=== PATIENT | female | born 1990 | race Caucasian/White ===

== ENCOUNTER → 2018-12-05 09:48 | Outpatient (CLI) | payer OTHER, SELFPAY ==
--- NOTE | 2018-12-05 09:52 | US_ITS ---
US breast RT complete INDICATION: Right breast lump. ORDERING PHYSICIAN: Rosa Barboza PATIENT AGE: 27 years COMPARISON: None TECHNIQUE: Complete right breast ultrasound with axilla FINDINGS: There is scattered echodense fibroglandular tissue. In the inferior periareolar region there is a 5 mm complex nodule within the subcutaneous tissues. This does not represent a simple cyst and could represent a furuncle. Please correlate with physical exam. No other significant anomalies are evident. Small nodes are present in the axilla. IMPRESSION: Complex subcutaneous nodule in the periareolar region inferiorly ostially due to a furuncle. Correlation with clinical parameters are needed. Does not represent a simple cyst by ultrasound. A solid lesion cannot be excluded BI-RADS Category: 3 Probably Benign Finding Short Term Follow-up Recommendations: Correlation with physical exam (A letter has been sent to the patient regarding results of the study.)
== END ==
PROVIDERS: PCP Nurse Practitioner Family; Visit Provider Nurse Practitioner Family
DX: N63.10 Unspecified lump in the right breast, unspecified quadrant (principal)
CPT/HCPCS: 76641

== ENCOUNTER 2020-10-24 15:01 | Emergency (ER) | payer OTHER, SELFPAY ==
[2020-10-24 15:10] VITALS: BP 99/75; PULSE 74; RESP 14; TEMP 36.2; O2SAT 98; BMI 25.3
--- NOTE | 2020-10-24 15:28 | HMH.EDUTC ---
[facility] [place] Disposition Clinical Impression: Left leg pain Contusion of left lower leg Qualifiers: Encounter type: initial encounter Qualified Code(s): S80.12XA - Contusion of left lower leg, initial encounter Disposition: Home, Self-Care Condition on Discharge: Good Instructions: Contusion, DI for Leg Pain Additional Instructions: Rest the extremity, Elevate the extremity as tolerated while you are resting. Take ibuprofen for pain. I sent in a prescription to your pharmacy. Follow up with Dr. Correa (orthopedics). I put in a referral but you need to call her office and schedule an appointment if you continue to have symptoms. Follow up with your regular doctor. GO TO THE ER FOR ANY WORSENING SYMPTOMS Prescriptions: Ibuprofen [Ibuprofen 600mg Tablet] 600 mg PO Q6HP PRN #30 tab PRN Reason: Mild Pain Transmission Status: Received by [id number] Referrals: Renu Hamilton [Primary Care Provider] - Forms: Work/School Release Time of Disposition: 16:29 Medical Decision Making - Medical Records Medical records reviewed: No: I reviewed the patient's medical records. - Giovanny Inquiry Pt receiving controlled substance: No Vital Signs: 10/24/20 15:10 10/24/20 16:36 Temperature 97.1 F L 97.1 F L Temperature Source Oral Pulse Rate 74 Pulse Rate [Right Brachial] 74 Respiratory Rate 14 14 Blood Pressure 99/75 L Blood Pressure [Right Arm] 99/75 L Blood Pressure Mean [Right Arm] 83 Blood Pressure Source [Right Arm] Automatic Cuff Blood Pressure Position [Right Arm] Sitting 02 Sat by Pulse Oximetry 98 Oxygen Delivery Method Room Air [facility] [place] HPI - General Stated complaint: left leg pain and swelling fell 2months ago Time Seen by Provider: 10/24/20 15:28 Mode of Arrival: Ambulatory Source of Information: Patient Limitations: No Limitations Description of Symptoms (Recalled from Triage Doc. by RN): PATIENT STATES SHE FELL AT WORK ON 09/10/20 AND HURT LEFT LEG. REPORTS LEFT LOWER LEG IS STILL HURTING AND SWELLING UP HEENT Symptoms (Recalled from RN notes): No Resp Symptoms (Recalled from RN notes): No Skin Symptoms (Recalled from RN notes): No MS Symptoms (Recalled from RN notes): Yes Functional Status (Recalled from RN notes): WNL - History of Present Illness Provider Complaint: She states that she fell approx 2 months ago and hit her left lower leg on something. Since then she has had a knot on her left cabral area where she was hurt in the fall. She is walking without difficulty. - Related Data Previous Rx's Medication Instructions Recorded Ibuprofen [Ibuprofen 600mg 600 mg PO Q6HP PRN #30 tab 10/24/20 Tablet] Allergies Allergy/AdvReac Type Severity Reaction Status Date / Time sertraline [From Zoloft] Allergy Verified 10/24/20 15:27 - Worker's Comp Is this a Worker's Comp case?: No [facility] History - Hepatitis A Screen Drug use history?: No High risk sexual behaviors?: No History of sexually transmitted infection?: No Currently employed?: No Childcare worker?: No Do you have indoor plumbing?: Yes Do you have electricity?: Yes Attestation statement:: This patient has been screened for Hepatitis A risk factors. I have reviewed the patient's past medical history: Yes - Social History Smoking Status: Current every day smoker Tobacco Type: cigarettes # Packs/Day (cigarettes): 1 Alcohol Intake: never Occupational Status: other ROS Obtained: Yes All systems reviewed & no additional complaints - Constitutional Constitutional: Denies chills, Denies fever(s) - Neurologic Neurologic: Denies seizure-like activity Physical Exam - General General appearance: alert, in no apparent distress - Head Head exam: atraumatic, normocephalic, normal inspection - Eye Eye exam: Present: normal appearance, PERRL, EOMI - ENT ENT exam: Present: normal exam, normal oropharynx, mucous membranes moist, TM's normal bilaterally, normal external ear exam
--- NOTE | 2020-10-24 15:41 | XR_ITS ---
PROCEDURE: XR TIBIA FIBULA LT 2V Referring Doctor: Zach Palomino Patient Age:29Y CLINICAL INDICATION: INJURY Fell 09/10/2020 persistent pain lower leg towards ankle region. COMPARISON: No exams were available for comparison FINDINGS: Left lower leg AP and lateral view. The left tibia and fibula intact with no fracture evident. No periosteal reaction or healing fracture. No bone lesion. Bones are well mineralized but thin patient This left lower leg study includes two views of the left ankle and knee of which are both unremarkable on limited images here. Ankle mortise appears intact with medial and lateral malleolus unremarkable on these views Soft tissues unremarkable no radiopaque foreign bodies. Slender patient IMPRESSION: Left lower leg intact/unremarkable No fracture or lesion evident Dictated by: Gerson Maldonado MD 10/24/2020 16:35 Gerson Maldonado MD in [place] 10/24/2020 16:35
[2020-10-24 16:36] VITALS: BP 99/75; PULSE 74; RESP 14; TEMP 36.2; O2SAT 98
== END 2020-10-24 16:42 | disposition home or self-care (01) ==
PROVIDERS: Emergency Provider Nurse Practitioner Family; PCP Nurse Practitioner Family
DX: S80.12XA Contusion of left lower leg, initial encounter (principal); W01.0XXA Fall on same level from slipping, tripping and stumbling without subsequent striking against object, initial encounter; F17.210 Nicotine dependence, cigarettes, uncomplicated
CPT/HCPCS: 73590; 99202; G0463

== ENCOUNTER 2020-11-30 11:54 | Emergency (ER) | payer OTHER, SELFPAY ==
[2020-11-30 12:20] VITALS: BP 119/80; PULSE 86; RESP 14; TEMP 36.9; O2SAT 98; BMI 25.0
--- NOTE | 2020-11-30 12:58 | HMH.EDUTC ---
[facility] [place] Clinical Impression: Bronchitis, Exposure to COVID-19 virus Sinusitis Qualifiers: Sinusitis location: unspecified location Chronicity: acute Recurrence: non-recurrent Qualified Code(s): J01.90 - Acute sinusitis, unspecified Disposition: Home, Self-Care Condition on Discharge: Good Instructions: DI for Sinusitis, Preventing the Spread of Coronavirus Discharge Instructions Additional Instructions: Drink plenty of fluids. Take tylenol for pain or fever. Return if you begin to have difficulty breathing. Follow up with your regular doctor. GO TO THE ER FOR ANY WORSENING SYMPTOMS Prescriptions: Azithromycin [Z-Real 250mg Tab*] 250 mg PO UD DOSE PK #6 tab Transmission Status: Received by [facility] Referrals: Sandy Rossi APRN [Primary Care Provider] - Forms: Work/School Release Time of Disposition: 13:00 Medical Decision Making - Medical Records Medical records reviewed: No: I reviewed the patient's medical records. - Giovanny Inquiry Pt receiving controlled substance: No Vital Signs: 11/30/20 12:20 11/30/20 13:06 Temperature 98.5 F 98.5 F Temperature Source Oral Pulse Rate 86 Pulse Rate [Right Brachial] 86 Respiratory Rate 14 14 Blood Pressure 119/80 Blood Pressure [Right Arm] 119/80 Blood Pressure Mean [Right Arm] 93 Blood Pressure Source [Right Arm] Automatic Cuff Blood Pressure Position [Right Arm] Sitting 02 Sat by Pulse Oximetry 98 Oxygen Delivery Method Room Air - Lab Data Lab Results 11/30/20 11:58: Strep Scn Rapid Clinic Negative Orders (Tests/Meds): ORDERS Category Date Time Status Strep Screen Confirmation Stat Micro 11/30/20 11:58 Received [facility] [place] HPI - General Stated complaint: cough, sore throat Time Seen by Provider: 11/30/20 12:58 Mode of Arrival: Ambulatory Source of Information: Patient Limitations: No Limitations Description of Symptoms (Recalled from Triage Doc. by RN): PATIENT C/O SORE THROAT, COUGHING, SNEEZING SINCE YESTERDAY HEENT Symptoms (Recalled from RN notes): Yes Resp Symptoms (Recalled from RN notes): No Skin Symptoms (Recalled from RN notes): No MS Symptoms (Recalled from RN notes): No Functional Status (Recalled from RN notes): WNL - History of Present Illness Provider Complaint: She c/o sore throat, sinus congestion and feeling bad for the past 2 days. - Related Data Previous Rx's Medication Instructions Recorded Ibuprofen [Ibuprofen 600mg 600 mg PO Q6HP PRN #30 tab 10/24/20 Tablet] Azithromycin [Z-Real 250mg Tab*] 250 mg PO UD DOSE PK #6 tab 11/30/20 Allergies Allergy/AdvReac Type Severity Reaction Status Date / Time sertraline [From Zoloft] Allergy Verified 10/24/20 15:27 - Worker's Comp Is this a Worker's Comp case?: No H History - Hepatitis A Screen Drug use history?: No High risk sexual behaviors?: No History of sexually transmitted infection?: No Currently employed?: No Childcare worker?: No Do you have indoor plumbing?: Yes Do you have electricity?: Yes Attestation statement:: This patient has been screened for Hepatitis A risk factors. I have reviewed the patient's past medical history: Yes - Social History Smoking Status: Current every day smoker Tobacco Type: cigarettes # Packs/Day (cigarettes): 1 Alcohol Intake: never Occupational Status: other ROS Obtained: Yes All systems reviewed & no additional complaints - Constitutional Constitutional: Reports chills, Denies fever(s), Reports poor appetite, Reports malaise - Eyes Eyes: Denies eye discharge - ENT Ears, Nose, Mouth, and Throat: Reports as per HPI - Cardiovascular Cardiovascular: Denies chest pain - Respiratory Respiratory: Reports chest congestion, Reports cough Physical Exam - General General appearance: alert, in no apparent distress - Head Head exam: atraumatic, normocephalic, normal inspection - Eye Eye exam: Present: normal appearance, PERRL, EOMI
[2020-11-30 13:06] VITALS: BP 119/80; PULSE 86; RESP 14; TEMP 36.9; O2SAT 98
[2020-11-30 19:02] LABS: UTC Strep Screen (Rapid) Negative (Negative)
== END 2020-11-30 13:15 | disposition home or self-care (01) ==
PROVIDERS: Emergency Provider Nurse Practitioner Family; PCP Nurse Practitioner Family
DX: Z20.822 Contact with and (suspected) exposure to COVID-19 (principal); J20.9 Acute bronchitis, unspecified; J01.90 Acute sinusitis, unspecified; F17.210 Nicotine dependence, cigarettes, uncomplicated
CPT/HCPCS: 87880; 99202; G0463; U0003

== ENCOUNTER 2025-01-30 07:48 | Emergency (ER) | payer BC, SELFPAY ==
--- NOTE | 2025-01-30 07:50 | HMH.EDGENADL ---
Discharge Plan Disposition Patient Disposition: Home, Self-Care Condition: Good Chief Complaint: Ear Prescriptions Prescriptions: No Action azithromycin 250 MG tablet 250 mg PO UD DOSE PK Qty: 6 0RF Rx Instructions: Take two (2) tablets today, then one (1) tablet days #2 thru #5 ibuprofen 600 MG tablet 600 mg PO Q6HP PRN (Reason: Mild Pain) Qty: 30 0RF Referrals Follow up/Referrals: Kael Rossi JR, MD [Primary Care Provider] - See instructions Activity Restrictions/Add. Instructions Additional Instructions/Restrictions: Please follow up with your primary care provider in 2-3 days. Please return to ED if your symptoms worsen, change in location, change in severity, new symptoms develop or if you become concerned for your health. Clinical Impressions Clinical Impression: Foreign body in ear Print Language Print Language: Greenlandic Discharge ED Provider: Dennys Nassar General Adult HPI General Chief complaint: Ear Stated complaint: bug in R ear Time Seen by Provider: 01/30/25 07:49 History of Present Illness HPI narrative: Patient is a 34-year-old female with no significant past medical history who is presenting today due to feeling of something in her ear when she woke up this morning. She denies any drainage to the ear. History is limited secondary to her feeling anxious about what is in her ear. When she went to bed last night, she was having no ear pain or issues hearing. Related Data Previous Rx's ?Medication ?Instructions ?Recorded ibuprofen 600 mg tablet 600 mg PO Q6HP PRN Mild Pain #30 10/24/20 tabs azithromycin 250 mg tablet 250 mg PO UD DOSE PK #6 tabs 11/30/20 Allergies Allergy/AdvReac Type Severity Reaction Status Date / Time sertraline (From Zoloft) Allergy Verified 10/24/20 15:27 [facility] Disclaimer: The information contained in this section may have been updated after the patient was seen, as this information can be updated by other users. Social History Smoking Status: Current every day smoker tobacco type: cigarettes packs per day: 1 alcohol intake: never current occupational status: other Travel in the last 8 weeks?: None Have you lived/traveled outside [place] in past 30 days?: No Contact w/someone who lives/traveled outside US past 30 days?: No Exposure to someone with infectious disease in past 14 days?: No Do you have a fever (greater than 100.4 F or 38 C)?: No Have you tested positive for COVID-19?: No Exposed to someone with COVID-19 in past 14 days?: No Do you have a sore throat?: No Do you have a cough?: No Do you have any weakness?: No Do you have any diarrhea?: No Are you experiencing any unusual bleeding?: No Do you have any muscle aches/pain?: No Do you have any abdominal pain?: No Are you experiencing loss of taste or smell?: No ROS Obtained: Yes All systems reviewed & no additional complaints except as documented Physical Exam General General appearance: alert and in no apparent distress Head Head exam: atraumatic and normocephalic Eye Eye exam: Present normal appearance ENT ENT exam: Absent TM's normal bilaterally (Salvador in right ear, unable to visualize TM initially) Chest Chest inspection: Present symmetric chest wall rise Respiratory Respiratory exam: Absent respiratory distress or stridor Cardiovascular Cardiovascular exam: Present regular rate Abdominal Exam Abdominal exam: Absent distention Extremities Exam Extremities exam: Present normal inspection Neurological Exam Neurological exam: Present alert and oriented X3 Psychiatric Psychiatric exam: Present anxious; Absent normal mood Skin Skin exam: Present warm and dry Medical Decision Making Medical Records Screening: Per USPSTF and CDC recommendations, given the prevalence of disease in our region, it is our hospital?s policy to screen for HIV and viral Hepatitis for all patients aged 18 and over and those with ongoing risk factors. Giovanny Inquiry Pt receiving controlled substance: No Vital Signs: 01/30/25 07:53 Temperature 98.6 F Temperature Source Oral Pulse Rate [Right Brachial] 117 H Respiratory Rate 20 Blood Pressure [Right Arm] 117/68 Blood Pressure Mean [Right Arm] 84 Blood Pressure Source [Right Arm] Automatic Cuff Blood Pressure Position [Right Arm] Sitting 02 Sat by Pulse Oximetry 98 Oxygen Delivery Method Room Air Orders (Tests/Meds): ED MEDICATIONS Discontinued Medications Generic Name Dose Route Start Last Admin Trade Name Freq PRN Reason Stop Dose Admin Lorazepam 1 mg 01/30/25 07:56 01/30/25 08:02 Lorazepam 1mg Tablet PO 01/30/25 07:57 1 mg ONCE ONE Administration Medical Decision Narrative: In summary, this 34-year-old presents to the emergency department today with salvador in right ear. On initial evaluation patient is afebrile, hemodynamically stable. She is significantly anxious. She has a salvador that I am able to visualize in the external auditory meatus on the right.. Differential diagnosis includes but is not limited to fb, TM perf, AOM Ativan given for anxiolysis. Irrigated with lidocaine 1% and spider exited intact. TM intact and external auditory meatus appears within normal limits on my examination afterward. Patient is returned to baseline no other complaints At this time it was felt that the patient was safe to be discharged home. The patient was in agreement with this plan. The patient was given strict return precautions prior to being discharged from the emergency department. Procedures Foreign Body Removal Time Out Performed: Yes Site: right and ear Description of foreign body: other (spider intact) Sedation/Analgesia: other (ativan) Technique: irrigation (lidocaine 1% w epi) Confirmed by:: direct visualization Complications: none Post-procedure exam: awake, alert Critical Care Critical Care Time Critical Care Time: No
[2025-01-30 07:53] VITALS: BP 117/68; PULSE 117; RESP 20; TEMP 37; O2SAT 98; BMI 29.0
[2025-01-30] MEDS: LORazepam 1MG TABLET 1 MG PO (08:02)
[2025-01-30 08:29] VITALS: BP 120/64; PULSE 94; RESP 20; TEMP 37; O2SAT 99
== END 2025-01-30 08:32 | disposition home or self-care (01) ==
PROVIDERS: Emergency Provider Emergency Medicine; PCP Orthopaedic Surgery
DX: T16.1XXA Foreign body in right ear, initial encounter (principal); W44.F4XA Insect entering into or through a natural orifice, initial encounter
CPT/HCPCS: 69200; 99283